=== PATIENT | female | born 1990 | race Caucasian/White ===

== ENCOUNTER → 2021-01-15 | Outpatient (CLI) | payer BC ==
[2021-01-15 10:22] LABS: Basophils # (A) 0.1 k/uL (0-0.2); Basophils % (A) 1 %; Eosinophils # (A) 0.8 k/uL (0-0.7); Eosinophils % (A) 10 %; HCT 41.6 % (34.0-46.0); HGB 13.7 gm/dL (11.4-16.0); Lymphocytes # (A) 1.9 k/uL (1.0-4.8); Lymphocytes % (A) 23 %; MCH 30.3 pg (25.0-35.0); MCV 91.8 fL (80.0-100.0); Mean Platelet Volume 8.4; Monocytes # (A) 0.6 k/uL (0-1.0); Monocytes % (A) 7 %; Neutrophils # (A) 4.9 k/uL (1.3-7.7); Neutrophils % (A) 58 %; Platelet Count 265 k/uL (150-450); RBC 4.53 m/uL (3.80-5.40); RDW 12.7 % (11.5-15.5); WBC 8.5 k/uL (3.8-10.6)
== END | disposition home or self-care (01) ==
LOC: LABPAT 08:55
PROVIDERS: ATTEND Obstetrics & Gynecology Obstetrics
DX: Z01.812 Encounter for preprocedural laboratory examination (principal); N87.1 Moderate cervical dysplasia
CPT/HCPCS: 36415; 85025

== ENCOUNTER 2021-01-25 08:17 | Day surgery (SDC) | payer BC ==
[2021-01-21 12:09] VITALS: BMI 36.5
[~2021-01-25 08:17] MED LIST: DEXAMETHASONE SOD PHOSPHATE 4 MG/ML 1 ML VIAL IV ONE; HYDROmorphone 0.5 MG/0.5 ML SYRINGE IVP PRN; LACTATED RINGERS 1,000 ML IV SCH; ONDANSETRON 4 MG/2 ML VIAL IVP ONE; Pre Op ABX Message 1 EACH MISC MISCELLANE ONE
[2021-01-25] MEDS ORDERED: MIDAZOLAM 2 MG/2 ML VIAL ONE (09:26)
[2021-01-25] MEDS ORDERED: LIDOCAINE 1% INJ 10MG/ML (20 ML MDV) ONE (09:26)
[2021-01-25] MEDS ORDERED: fentaNYL (PF) 50 MCG/ML 2 ML AMP ONE (09:26)
[2021-01-25] MEDS ORDERED: PROPOFOL 10 MG/ML 20 ML VIAL IV ONE (09:26)
[2021-01-25] MEDS ORDERED: KETOROLAC 15 MG/ML 1 ML VIAL ONE (09:26)
[2021-01-25] MEDS ORDERED: FERRIC SUBSULFATE (MONSELS) JAR TOPICAL ONE (09:48)
--- NOTE | 2021-01-25 10:04 | P.OP ---
Date of Procedure: 01/25/21 Preoperative Diagnosis: Severe dysplasia of the cervix, JARAD-2/3 Postoperative Diagnosis: Same Procedure(s) Performed: LEEP procedure Anesthesia: MAC Surgeon: Courtney Payne Estimated Blood Loss (ml): 5 IV fluids (ml): 300 Urine output (ml): 50 Pathology: other (Cervix) Condition: stable Disposition: PACU Indications for Procedure: Severe cervical dysplasia noted on colposcopy biopsies. Operative Findings: Per colposcopy findings Description of Procedure: Patient was taken back to the operating suite where general anesthesia was obtained without difficulty by the anesthesia department. She was then prepped and draped in the normal sterile fashion in the dorsal lithotomy position. Red rubber catheter was used to drain the bladder of clear yellow urine. A speculum was placed into the vaginal vault. Cervix was visualized and a loop was attached to the Bovie device. The ectocervix was removed in multiple pieces. The specimens and sent to pathology for analysis. Hemostasis was appreciated. The ball cautery was used to cauterize the edges and cervical stump. Monsel's was placed at the end of the procedure. Speculum was removed without difficulty. All counts were noted to be correct 2 at the with the procedure. Patient did tolerate procedure well. She was taken to the recovery room awake in stable condition.
[2021-01-25 10:06] VITALS: TEMP 96.8
[2021-01-25 10:59] VITALS: RESP 20
[2021-01-25 11:19] VITALS: BP 119/76; PULSE 72
== END 2021-01-25 11:20 | disposition home or self-care (01) ==
LOC: OR 08:17
PROVIDERS: ATTEND Obstetrics & Gynecology Obstetrics
DX: D06.7 Carcinoma in situ of other parts of cervix (principal); F90.9 Attention-deficit hyperactivity disorder, unspecified type; F41.9 Anxiety disorder, unspecified; J45.909 Unspecified asthma, uncomplicated; K21.9 Gastro-esophageal reflux disease without esophagitis; Z79.899 Other long term (current) drug therapy; Z88.2 Allergy status to sulfonamides; Z88.8 Allergy status to other drugs, medicaments and biological substances; Z87.891 Personal history of nicotine dependence; E66.01 Morbid (severe) obesity due to excess calories
CPT/HCPCS: 81025; 88307; 57460; J2250; J1100; J2405; J2001; J3010; J1885; J2704

== ENCOUNTER 2021-09-17 08:13 | Emergency (ER) | payer BC ==
[2021-09-17 08:21] VITALS: BP 127/83; PULSE 87; RESP 20; TEMP 97.6
[2021-09-17] MEDS ORDERED: KETOROLAC 15 MG/ML 1 ML VIAL IM STA (08:29)
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
--- NOTE | 2021-09-17 09:27 | XR ---
EXAMINATION TYPE: XR ankle complete RT DATE OF EXAM: 09/17/2021 COMPARISON: NONE HISTORY: Pain TECHNIQUE: Frontal, lateral and oblique images of the right ankle are obtained. COMPARISON: None. FINDINGS: There is no acute fracture/dislocation evident. The joint spaces appear within normal ortega its. The overlying soft tissue appears unremarkable. IMPRESSION: There is no acute fracture or dislocation seen.
--- NOTE | 2021-09-17 09:27 | XR ---
EXAMINATION TYPE: XR foot complete RT DATE OF EXAM: 09/17/2021 CLINICAL HISTORY: pain TECHNIQUE: Frontal, lateral and oblique images of the right foot are obtained. COMPARISON: None. FINDINGS: There is no acute fracture/dislocation evident. The joint spaces appear within normal ortega its. Note is made of dorsal soft tissue swelling. IMPRESSION: There is no acute fracture or dislocation. ICD 10 NO FRACTURE, INITIAL EVALUATION
== END 2021-09-17 09:52 | disposition home or self-care (01) ==
LOC: EC 08:13
DX: S90.31XA Contusion of right foot, initial encounter (principal); F90.9 Attention-deficit hyperactivity disorder, unspecified type; F12.90 Cannabis use, unspecified, uncomplicated; Z87.891 Personal history of nicotine dependence; Z88.1 Allergy status to other antibiotic agents; Z88.2 Allergy status to sulfonamides; W22.8XXA Striking against or struck by other objects, initial encounter
CPT/HCPCS: 99283; 96372; 73610; 73630; J1885